=== PATIENT | male | born 1955 | race Caucasian/White ===

== ENCOUNTER 2016-05-12 09:08 | Emergency (ER) ==
--- NOTE | 2016-05-12 10:52 | PROVIDER DOCUMENTATION ---
HPI-Musculoskeletal Pain/Inj - GENERAL Chief Complaint: Extremity Pain Stated Complaint: HIP/GROIN PAIN Time Seen by Provider: 05/12/16 10:35 Source: patient - HX OF PRESENT ILLNESS-MUSKULOSKELTAL Nature of Presenting Problem: This pt presents to ED with c/o right hip pain from arthritis that has worsened over the past week. He is being followed by Dr. Morel for his arthritis in which he was given a Medrol dose pack and Hazen 7.5 earlier this week after evaluation. He reports that "it hasn't touched it" when discussing his pain. He states he hasn't been able to sleep. He is able to walk but "not very far." He presents today just requesting something to "get him by." He will f/u c Dr. Morel on Saturday. Quality of Pain: reports: aching Severity in ED: moderate Onset/Duration: other (see hpi) Timing: still present Modifying Factors: improves with: movement Any recent injury?: No Similar Symptoms Previously?: Yes Recently seen or treated by another doctor?: Yes Review of Systems - Adult - REVIEW OF SYSTEMS - ADULT Constitutional: reports: no symptoms reported. denies: chills, fever Eyes: reports: no symptoms reported. denies: discharge, dry eyes Ears, Nose, Mouth & Throat: reports: no symptoms reported. denies: ear discharge, ear pain Cardiovascular: reports: no symptoms reported. denies: chest pain, edema Respiratory: reports: no symptoms reported. denies: chronic cough, cough Gastrointestinal: reports: no symptoms reported. denies: abdominal pain, hematemesis Genitourinary: reports: no symptoms reported. denies: dysuria, discharge Musculoskeletal: reports: see HPI, joint pain. denies: bone pain, back pain, muscle aches Integumentary: reports: no symptoms reported. denies: hives, hair loss Neurological: reports: no symptoms reported. denies: ataxia, dizziness/vertigo Psychiatric: reports: no symptoms reported. denies: anxiety, anti-depressant use Endocrine: reports: no symptoms reported Hematologic/Lymphatic: reports: no symptoms reported Allergic/Immunologic: reports: no symptoms reported All Other Systems: Reviewed and Negative Past History - Adult - PAST MEDICAL HISTORY-ADULT Review of Records: reports: Old Records Reviewed, Nursing Assessment Review, Medications Reviewed, Social history reviewed & non-contributory. Major Childhood Illnesses: reports: denies history Cardiovascular: reports: denies history Respiratory: reports: denies history Gastrointestinal: reports: denies history Obstetrical/Gynecological: reports: denies history Genitourinary: reports: denies history Musculoskeletal: reports: arthritis Neurological: reports: denies history Endocrine/Immune: reports: denies history Other Conditions: reports: denies history - PRIOR SURGERIES/PROCEDURES Surgical/Procedure History: reports: joint replacement - FAMILY HISTORY Family History: reviewed, not pertinent Physical Exam-Injury Related - Physical Exam-Injury Related Initial Vital Signs Reviewed: Yes General Appearance: appears well, alert, no apparent distress Eyes: PERRL/EOMI, pink conjunctivae Head, Ears, Nose, Mouth & Throat: normocephalic/atraumatic, moist mucous membranes, normal ENT inspection Neck: non-tender, full range of motion, supple, normal inspection Respiratory: chest non-tender, lungs clear, normal breath sounds Cardiovascular: normal peripheral pulses, regular rate, rhythm, no edema, no gallop, no JVD, no murmur Abdominal Exam: normal bowel sounds, non tender, soft Back Exam: normal inspection, no CVA tenderness, no vertebral tenderness Extremity: normal inspection, pelvis stable, tenderness (R hip) Integumentary: normal color, warm/dry, blanching Neurologic: grossly normal, no motor/sensory deficits. negative: facial droop, focal weakness, motor weakness, sensory deficit Progress - PLAN OF CARE/RESULTS Progress/Plan/Lab Results: Orders Category Date Time Status XRAY PELVIS W/HIP 2-3VW RT [RAD] Stat Exams 05/12/16 10:04 Taken Dexamethasone [Decadron] Med 05/12/16 11:01 Discontinued 10 mg IM NOW ONE Hydromorphone [Dilaudid] Med 05/12/16 11:01 Discontinued 1 mg IM NOW ONE Promethazine [Phenergan] Med 05/12/16 11:01 Discontinued 25 mg IM NOW ONE Vital Signs Temp Pulse Resp BP Pulse Ox 05/12/16 09:18 97.5 F L 79 18 177/74 98 meperidine HCl * [From Mepergan] Adverse Reaction (Severe, Verified 11/18/15 20: 31) agitation promethazine HCl * [From Mepergan] Adverse Reaction (Severe, Verified 11/18/15 20:31) agitation acetaminophen [From Percocet] Adverse Reaction (Verified 06/21/15 10:29) Unknown oxycodone HCl * [From Percocet] Adverse Reaction (Verified 06/21/15 10:29) Unknown Amlodipine Besylate [Norvasc] 2.5 mg PO DAILY #30 tablet 06/24/15 Bisoprolol [Zebeta] 10 mg PO DAILY #30 tablet 06/24/15 Furosemide [Lasix] 60 mg PO DAILY #30 tablet 06/24/15 LISINOpril [Prinivil] 40 mg PO DAILY #30 tablet 06/24/15 Potassium Chloride E.r. [Micro-K] 16 meq PO DAILY #30 capsule 06/24/15 Spironolactone [Aldactone] 12.5 mg PO DAILY #30 tablet 06/24/15 Tramadol [Ultram] 100 mg PO Q8H #20 tablet 06/24/15 Will have pt f/u c ortho on Saturday. He and his are in agreement. - XRAY 1 XRAY: Right XRAY Study: Pelvis, Hip XRAY Interpretation: nad Departure - Departure Time of Disposition Order: 11:04 DIAGNOSIS: Hip arthritis Disposition: HOME 01 Certified Medical Emergency: Urgent Condition: Good Additional Instructions: Continue taking your current medications. Follow up with Dr. Morel this week. Return to the ER for any new or worsening symptoms. ED Follow Up Instructions: You have been treated by a care provider in the Emergency Department. These instructions are being provided to you so you can have an understanding of how to care for yourself upon discharge. Upon discharge from the Emergency Department, you are responsible for making arrangements for follow-up care by a physician of your choice. Take all prescribed medications as directed. Return to the Emergency Department immediately for any new or worsening symptoms. You may call the Physician Referral phone number at [phone] to obtain a list of Physicians who are taking new patients. Referrals: Hal Ortiz MD [Primary Care Provider] - Abhi Morel MD [STAFF PHYSICIAN] - Attestation - Physician/ KIRA Attestation Patient care was provided by Advanced Practice Provider:: Yes Advanced Practice Provider:: Jorje Jones Advanced Practice Provider documentation review:: The Mid-level provider documentation, treatment plan and medical decision making was reviewed by the physician who agrees with all treatment and medical decision making by the MLP.
[2016-05-12] MEDS ORDERED: PHENERGAN IM ONE (11:01)
[2016-05-12] MEDS ORDERED: DILAUDID IM ONE (11:01)
[2016-05-12] MEDS ORDERED: DECADRON IM ONE (11:01)
[2016-05-12 11:47] VITALS: BP 165/70
--- NOTE | 2016-05-12 15:26 | Diag Imaging Result Document ---
PROCEDURE NAME: XRAY PELVIS W/HIP 2-3VW RT - 05/12/2016 RIGHT HIP AND PELVIS, 3 VIEWS: COMPARISON: No comparison exam. FINDINGS: There is a right total hip prosthesis which appears to be in satisfactory alignment. There is no fracture identified. There are no destructive changes identified. There is some bony hypertrophy at the medial margin of the proximal right femur which is likely chronic. There are degenerative changes noted at the visualized lower lumbar spine. IMPRESSION: Right total hip prosthesis in satisfactory alignment. No visible acute process.
== END 2016-05-12 11:46 | disposition home or self-care (01) ==
LOC: ED 09:08
DX: M16.11 Unilateral primary osteoarthritis, right hip (principal); M25.551 Pain in right hip
CPT/HCPCS: 96372; J1170; J2550

== ENCOUNTER 2016-07-27 16:22 | Inpatient (IN) ==
--- NOTE | 2016-07-27 18:46 | PROVIDER DOCUMENTATION ---
HPI-General Adult - General Chief Complaint: Weakness Stated Complaint: WEAKNESS ABD PAIN/KIDNEY & BONE CANCER Time Seen by Provider: 07/27/16 18:38 Source: patient, family Allergies/Adverse Reactions: Patient Allergies Allergy/AdvReac Type Severity Reaction Status Date / Time meperidine HCl * AdvReac Severe agitation Verified 11/18/15 20:31 [From Mepergan] promethazine HCl * AdvReac Severe agitation Verified 11/18/15 20:31 [From Mepergan] acetaminophen [From Percocet] AdvReac Unknown Verified 06/21/15 10:29 oxycodone HCl * AdvReac Unknown Verified 06/21/15 10:29 [From Percocet] Home Medications: Home Medication List Medication Instructions Recorded Confirmed Last Taken Type Amlodipine Besylate [Norvasc] 2.5 mg PO DAILY #30 tablet 06/24/15 Unknown Rx Bisoprolol [Zebeta] 10 mg PO DAILY #30 tablet 06/24/15 Unknown Rx Furosemide [Lasix] 60 mg PO DAILY #30 tablet 06/24/15 Unknown Rx LISINOpril [Prinivil] 40 mg PO DAILY #30 tablet 06/24/15 Unknown Rx Potassium Chloride E.r. [Micro-K] 16 meq PO DAILY #30 capsule 06/24/15 Unknown Rx Spironolactone [Aldactone] 12.5 mg PO DAILY #30 tablet 06/24/15 Unknown Rx Tramadol [Ultram] 100 mg PO Q8H #20 tablet 06/24/15 Unknown Rx Ondansetron HCl [Zofran] 1 - 2 tab PO Q6H PRN PRN #15 tablet 07/15/16 Unknown Rx - History of Present Illness -Gen Adult Nature of Presenting Problems: Pt is a 61 y/o M a chief complaint of weakness, abd pain, nausea and vomiting x 3-5 days. Pt recently returned from a trip where his family thinks he was exposed to someone with a gastroenteritis. Pt is currently under treatment by Dr. Ortega (Oncology) for renal cell carcinoma c mets to multiple dio sites. Pt 's family states he has stopped eating yesterday. They contacted Dr. Ortega who advised them to come to the ER for evaluation. Review of Systems - Adult - REVIEW OF SYSTEMS - ADULT Constitutional: reports: see HPImeng. denies: chills Eyes: reports: no symptoms reported. denies: blurred vision, double vision Ears, Nose, Mouth & Throat: reports: no symptoms reported. denies: ear pain, nose pain Cardiovascular: reports: no symptoms reported. denies: chest pain, orthopnea Respiratory: reports: no symptoms reported. denies: cough, shortness of breath Gastrointestinal: reports: see HPI, abdominal pain, nausea, vomiting Genitourinary: reports: no symptoms reported. denies: dysuria Musculoskeletal: reports: no symptoms reported. denies: bone pain, joint pain, joint swelling Integumentary: reports: no symptoms reported. denies: itching, rash Neurological: reports: no symptoms reported. denies: numbness, paresthesia Psychiatric: reports: no symptoms reported. denies: anxiety, emotional problems Endocrine: reports: no symptoms reported. denies: cold intolerance, heat intolerance Hematologic/Lymphatic: reports: no symptoms reported. denies: blood clots, low blood count Allergic/Immunologic: reports: no symptoms reported. denies: allergic reactions , food allergy All Other Systems: Reviewed and Negative Past History - Adult - PAST MEDICAL HISTORY-ADULT Review of Records: reports: Old Records Reviewed, Nursing Assessment Review, Medications Reviewed, Social history reviewed & non-contributory. Major Childhood Illnesses: reports: denies history Cardiovascular: reports: HTN Respiratory: reports: denies history Gastrointestinal: reports: denies history Obstetrical/Gynecological: reports: denies history Genitourinary: reports: cancer (renal cell carcinoma c mets) Musculoskeletal: reports: arthritis Neurological: reports: denies history Endocrine/Immune: reports: denies history Other Conditions: reports: denies history - PRIOR SURGERIES/PROCEDURES Surgical/Procedure History: reports: joint replacement - IMMUNIZATION STATUS Childhood Immunizations: See Nurse Assessment Flu Vaccine: See Nurse Assessment - FAMILY HISTORY Family History: reviewed, not pertinent - SOCIAL HISTORY Smoking: denies Substance Use: none/never Alcohol Use Frequency: never Living Situation: family Physical Exam-General - PHYSICAL EXAM-ADULT Initial Vital Signs Reviewed: Yes - CONSTITUTIONAL General Appearance: alert, no apparent distress, lethargic - EYES Eyes: PERRL/EOMI, pink conjunctivae - HEAD, EARS, NOSE, MOUTH & THROAT HENMT: normocephalic/atraumatic, moist mucous membranes, normal ENT inspection - NECK Neck: normal inspection - RESPIRATORY Respiratory: chest non-tender, lungs clear, normal breath sounds - CARDIOVASCULAR Cardiovascular: normal peripheral pulses, regular rate, rhythm - GASTROINTESTINAL (ABDOMEN) Abdominal Exam: distended, tenderness - LYMPHATIC Lymphatic: no adenopathy - MUSCULOSKELETAL Back Exam: normal inspection, no CVA tenderness, no vertebral tenderness Extremity: normal range of motion, non-tender, normal inspection - SKIN Integumentary: normal color, normal turgor, warm/dry - NEUROLOGIC Neurologic: grossly normal, no motor/sensory deficits - PSYCHIATRIC Psych/Mental Status: normal mood/affect, normal thought content, normal thought process, oriented x 3 Progress - PLAN OF CARE/RESULTS Progress/Plan/Lab Results: Vital Signs - 8 hr 07/27/16 16:39 Temperature 98.2 F Pulse Rate 115 H Respiratory Rate 22 Blood Pressure 144/77 O2 Sat by Pulse Oximetry 100 Orders Category Date Time Status Saline Loc NOW Care 07/27/16 18:44 Active CHEST-2 VIEWS [RAD] Stat Exams 07/27/16 18:44 Ordered BLOOD CULTURE [BLDCUL] Stat Lab 07/27/16 18:44 Uncollected CBC WITH ELECTRONIC DIFF [HEME] Stat Lab 07/27/16 18:44 Uncollected COMPREHENSIVE METABOLIC PANEL [CHEM] Stat Lab 07/27/16 18:44 Uncollected D-DIMER [CHEM] Stat Lab 07/27/16 18:44 Uncollected MAGNESIUM [CHEM] Stat Lab 07/27/16 18:44 Uncollected PRO B-NATRIURETIC PEPTIDE Stat Lab 07/27/16 18:44 Uncollected PROTIME WITH INR [COAG] Stat Lab 07/27/16 18:44 Uncollected PTT [COAG] Stat Lab 07/27/16 18:44 Uncollected TROPONIN T Stat Lab 07/27/16 18:44 Uncollected UA Reflex [URINALYSIS W/POSS RFLX CULT] [URINALYSIS] Lab 07/27/16 18:45 Uncollected Stat EKG [EKG] Stat Ther 07/27/16 16:39 Ordered EKG [EKG] Stat Ther 07/27/16 18:44 Ordered Result Diagrams: 07/27/16 19:07 07/27/16 19:07 - CONSULTS/PCP/HOSPITALIST Notification #1 *Consult/PCP/Hospitalist*: Dr. Ortega ([facility] onc) Time Discussed: 22:16 Reason/Comments: admit to pcp. #2 Consult: Dr. Krishna (hospitalist) Time Discussed: 22:34 Reason/Comments: Will admit pt and see in ER. Departure - Departure Time of Disposition Decision: 22:34 DIAGNOSIS: Elevated liver enzymes Nausea & vomiting Qualifiers: Vomiting type: unspecified Vomiting Intractability: non-intractable Qualified Code(s): R11.2 - Nausea with vomiting, unspecified Abdominal pain Qualifiers: Abdominal location: unspecified location Qualified Code(s): R10.9 - Unspecified abdominal pain Disposition: ADMITTED INPATIENT 09 Certified Medical Emergency: Emergent Condition: Stable Referrals and Follow-Ups: Hal Ortiz MD [Primary Care Provider] - - Critical Care Note This patient required my direct & personal management of CC.: No Attestation - Physician/ KIRA Attestation Patient care was provided by Advanced Practice Provider:: Yes Advanced Practice Provider:: Rober Drew Advanced Practice Provider documentation review:: The Mid-level provider documentation, treatment plan and medical decision making was reviewed by the physician who agrees with all treatment and medical decision making by the MLP.
[2016-07-27] MEDS ORDERED: NS 1,000 ML IV ONE ×2 (19:08→23:27)
[2016-07-27 19:20] LABS: MANUAL DIFF NEEDED? NO
[2016-07-27 19:31] LABS: BASO% 0.1 % (0.0-0.8); EOS# 0.21 X1000 (0.0-0.7); HEMATOCRIT 48.4 % (42.0-52.0); HEMOGLOBIN 17.4 g/dL (14.0-18.0); IMM GRAN# 0.04 X1000 (0.0-0.04); IMM GRAN% 0.6 % (0.0-0.5); LYMPH# 0.91 X1000 (1.2-3.4); LYMPH% 12.9 % (20.5-51.1); MCH 29.3 PG (27-31); MCV 81.6 FL (81-99); MONO# 0.55 X1000 (0.11-0.59); MONO% 7.8 % (1.7-9.3); MPV 9.2 FL (7.4-10.4); NEUT% 75.6 % (42.2-75.2); PLT 92 X1000 (130-400); RBC 5.93 XMIL (4.7-6.1)
[2016-07-27 19:34] LABS: INR 1.02; PROTIME 10.7 Seconds (9.2-11.7); PTT 28.7 Seconds (22.0-36.0)
[2016-07-27 19:46] LABS: AGAP 15; ALBUMIN 3.5 g/dL (3.5-5.0); ALKALINE PHOSPHATASE 102 U/L (32-122); BUN 12 mg/dL (8-22); CALCIUM 8.1 mg/dL (8.8-10.2); CHLORIDE 90 mmol/L (98-107); COSMO 257; GOT 135 U/L (10-34); GPT 565 U/L (10-44); POTASSIUM 3.9 mmol/L (3.5-5.1); SODIUM 128 mmol/L (136-145); TCO2 23 mmol/L (25-35); TOTAL BILIRUBIN 0.89 mg/dL (0.20-1.00); TOTAL PROTEIN 6.6 g/dL (6.3-8.3)
--- NOTE | 2016-07-27 19:57 | Diag Imaging Result Doc PS360 ---
CHEST-2 VIEWS - 07/27/2016 INDICATION: sob TECHNIQUE: COMPARISON: 06/22/2015 FINDINGS: The lungs are normally expanded and clear. Heart size and mediastinal contours are normal. No pneumothorax or pleural effusion. IMPRESSION: Negative exam. Electronically signed by Nimesh Monet 07/27/2016 7:55 PM
--- NOTE | 2016-07-27 21:47 | Diag Imaging Result Doc PS360 ---
HEAD W/O CONTRAST - 07/27/2016 INDICATION: weakness, CA c mets TECHNIQUE: A CT dose reduction protocol was used. COMPARISON: None FINDINGS: The ventricles and sulci are normal in size and contour. No intracranial mass or hemorrhage. The skull is intact. The sinuses mastoids and middle ears are clear. IMPRESSION: Negative exam. Electronically signed by Nimesh Monet 07/27/2016 9:45 PM
--- NOTE | 2016-07-27 21:57 | Diag Imaging Result Doc PS360 ---
ABD/PELVIS/PULM ARTERIES - 07/27/2016 INDICATION: weakness, ca c mets TECHNIQUE: A CT dose reduction protocol was used. COMPARISON: Skeletal survey 05/22/2016 FINDINGS: CHEST: There is a large lytic mass of the glenoid process of the left scapula. This was present on the previous skeletal survey but was more difficult to see at that time. There is a soft tissue mass involved measuring about 5-6 cm. There is probably also a tiny erosive nodule at the medial border of the right scapula. Other bones are intact. Axial CT images were obtained after administering intravenous contrast. Coronal MIP images were generated. There is no pulmonary embolism. Heart and great vessels are normal. There are calcified granulomas in the right lower lobe. The lungs are otherwise clear. Abdomen pelvis: There is a suspicious, heterogeneously enhancing mass of the lower pole of the right kidney. This is at the anterior surface. This measures 4.7 x 5.5 cm. There are bilateral suspicious adrenal masses measuring about 2 cm. No bowel obstruction or inflammation. No significant adenopathy. There is a right hip prosthesis. There is a superficial soft tissue nodule posterior to the sacrum at the left side. This is heterogeneously calcified. This measures 2.5 cm. Centered at the right pedicle and posterior elements of L3, there is a rather large erosive mass. This probably nearly completely fills the central canal and measures 2.2 x 4.6 cm. IMPRESSION: 1. Right renal mass with bilateral adrenal masses. 2. Metastases in the scapula bilaterally and L3 vertebral body. Small soft tissue nodule posterior to the sacrum. Electronically signed by Nimesh Monet 07/27/2016 9:54 PM
[2016-07-27] MEDS ORDERED: ZOFRAN IV ONE (22:15)
[2016-07-27] MEDS ORDERED: ZOSYN 3.375 GM/NS 3.375 GM/50 ML IVPB IV ONE (22:15)
[2016-07-27] MEDS ORDERED: MORPHINE IM ONE (22:15)
[2016-07-27 23:36] LABS: URINE CULTURE NEEDED? NO; URINE MICRO REVIEW NEEDED? NO; URINE SOURCE CLEAN CATCH
[2016-07-27 23:43] LABS: BILIRUBIN URINE NEGATIVE (NEGATIVE); BLOOD URINE NEGATIVE (NEGATIVE); COLOR YELLOW; GLUCOSE URINE NEGATIVE (NEGATIVE); LEUKOCYTES URINE NEGATIVE (NEGATIVE); NITRITE URINE NEGATIVE (NEGATIVE); PH URINE 6.5; PROTEIN URINE 30 mg/dL (NEGATIVE); TURBIDITY URINE CLEAR (CLEAR); UROBILINOGEN URINE 6 mg/dL (NORMAL)
[2016-07-27 23:44] LABS: UR EPITHELIAL CELLS <10 /HPF (<10); URINE BACTERIA NEGATIVE /HPF; URINE RBC <10 /HPF (<10); URINE WBC <10 /HPF (<10)
[2016-07-28 00:05] LABS: SP GRAVITY URINE > 1.050
[2016-07-28] MEDS ORDERED: NS 1,000 ML IV SCH (00:17)
[2016-07-28] MEDS ORDERED: APRESOLINE IV PRN (00:17)
[2016-07-28] MEDS: PROTONIX IV SCH ×2 (01:21→23:45)
[2016-07-28] MEDS: ZOFRAN IV PRN ×2 (05:41→10:13)
--- NOTE | 2016-07-28 05:59 | HISTORY AND PHYSICAL ---
PRIMARY CARE PROVIDER: Hal Ortiz MD CHIEF COMPLAINT: Abdominal pain with nausea and vomiting. HISTORY OF PRESENT ILLNESS: This is a 61-year-old male, who presented with weakness, abdominal pain, nausea and vomiting for 3-5 days. The patient recently returned from a trip apparently where the family thinks he may have been exposed to someone with a viral illness. At any rate, he has renal cell carcinoma with multiple mets to bony sites. He sees Dr. Ortega who was treating him with a targeted oral chemotherapy. He had to have, from what I understand, emergent spine radiation 3-4 weeks ago related to a tumor pressing on his spinal column. He became unable to urinate. The chemotherapy has been stopped at this time and will be restarted some time in the future per Dr. Ortega. The , who is at bedside, states over the past 2 weeks, he is barely been eating at all. He has lost roughly 18 pounds in the last week. The patient, I believe, has other past medical history of congestive heart failure, hypertension, history of DVTs and osteoarthritis. There was a time where he was noncompliant with his antihypertensive medications, but per the , he is taking these now. Laboratory data was obtained in the emergency room, which showed an elevated ALT and AST. The patient had normal liver function tests on 07/15/2016. At this time, his AST is 135 and his ALT is 565. The ER sent an acute hepatitis panel off. The patient also appears to be volume depleted related to his nausea and vomiting. He was noted as having a sodium of 128. He will be admitted to the medical floor for further evaluation and treatment. PAST MEDICAL HISTORY: See HPI. PREVIOUS SURGICAL HISTORY: 1. Left knee surgery. 2. Left knee arthroscopic x2 3. Left TKR, April 2009. 4. Right THR 2010. ALLERGIES: Demerol causing agitation, Phenergan causing agitation, and Percocet causing an unknown reaction. He was also noted as having an MARIAN inhibitor cough in the past. FAMILY HISTORY: Notable for myocardial infarction in his father at age 59, hypertension in his brother. A brother with leukemia. SOCIAL HISTORY: Lives in [facility] with his . Has 2 children. On disability. Worked at [employer] for 25 years. In the past was a social cigarette user but never chronically used tobacco. Denies alcohol or illicit drug use or abuse. HOME MEDICATIONS: A list of home medications was not reconciled. An order was placed for nursing to reconcile home medications. These will be restarted when appropriate. REVIEW OF SYSTEMS: Fourteen point review of systems conducted, and is notable for nausea, vomiting, abdominal pain, global weakness and fatigue. All other systems were reviewed and found to be negative. PHYSICAL EXAMINATION: VITAL SIGNS: Temperature 98.2 degrees, pulse 122, respirations 20, blood pressure 142/100, oxygen saturation 100% on room air. GENERAL: Very fatigued looking 61-year-old gentleman. He is morbidly obese lying in the ER stretcher. is at bedside. He is alert and oriented x3. Answers all questions appropriately. HEENT: Head is atraumatic, normocephalic. Pupils are equal, round, reactive to light. Extraocular eye movement are intact. Sclerae is anicteric. Conjunctivae is pink. Oral mucosa is dry. NECK: Supple. Trachea is midline. No JVD noted. CARDIOVASCULAR: S1-S2 appreciated. Regular rhythm. No murmurs, gallops, rubs. LUNGS: Clear to auscultation bilaterally. No rhonchi, wheezes or rales. Symmetrical rise and fall with respirations. ABDOMEN: Soft but distended. Bowel sounds decreased all 4 quadrants. Diffusely tender. No rigidity or rebound tenderness or guarding noted. EXTREMITIES: Trace lower extremity edema, nonpitting. Discoloration from chronic venous stasis on bilateral shins. Multiple small scratches and abrasions on the patient's shins noted. Pedal pulses 2+. NEUROLOGICAL: Mildly lethargic but alert and oriented x3. Cranial nerves 2-12 appear to be grossly intact. No focal deficits. DIAGNOSTIC DATA: CT scan of the abdomen, pelvis and pulmonary arteries showed a right renal mass with bilateral adrenal masses. Mets were noted to the bilateral scapulae, L3 vertebrae and a soft tissue nodule posterior to the sacrum. A CT of the head was completed. It was a negative examination. LABORATORY DATA: CBC within normal limits. Coagulations within normal limits. Sodium 128, potassium 3.9, chloride 90, carbon dioxide 23, BUN 12, creatinine 0.6, glucose 101, AST 135, ALT 565, plasma lactate 3, urine unremarkable. ASSESSMENT: 1. Abdominal pain with nausea and vomiting, unknown etiology. The patient's states that she believes he was around someone with a viral illness. We will give the patient Zofran as needed for nausea. The patient did receive 1 time dose of Zosyn in the emergency room. No clear infectious process can be determined. We will not continue Zosyn at this time. 2. Transaminitis. Patient has an elevation of his ALT and AST, which he did not have on previous labs. On 07/15/2016, a CT was done of his abdomen which did not note any changes to the liver. We will order a right upper quadrant ultrasound. Dr. Ortega has requested that a surgical consult be placed related to his elevated liver enzymes and abdominal pain to evaluate patient and reassess the CT scan. 3. Fluid volume depletion. This is secondary to nausea and vomiting. Fluid bolus was given in the emergency room. We will continue gentle fluid hydration. 4. Hyponatremia. This will likely resolve with fluids noted above. 5. Hypertension. The patient's home medication list has not been updated at this time. We will give hydralazine 10 mg IV q.6 p.r.n. for systolic blood pressure greater than 160 until his home medications can be restarted. 6. Right renal cell carcinoma with multiple metastatic sites. Dr. Ortega has been consulted to evaluate the patient. He follows him outpatient. We will give morphine 2-4 mg as needed for pain, and restart home medications when possible. Further recommendations per patient clinical course. Dictated by HERNAN Mahajan for Porfirio Krishna MD cc: HERNAN Mahajan MD Stephen W. Harbin, MD Traci C. McCormick, MD Naveen T. Lobo, MD
[2016-07-28 07:11] LABS: AGAP 13; ALBUMIN 2.9 g/dL (3.5-5.0); ALKALINE PHOSPHATASE 83 U/L (32-122); BUN 12 mg/dL (8-22); CHLORIDE 97 mmol/L (98-107); COSMO 260; GOT 99 U/L (10-34); GPT 440 U/L (10-44); POTASSIUM 3.8 mmol/L (3.5-5.1); SODIUM 129 mmol/L (136-145); TCO2 19 mmol/L (25-35); TOTAL BILIRUBIN 0.78 mg/dL (0.20-1.00); TOTAL PROTEIN 5.6 g/dL (6.3-8.3)
[2016-07-28] MEDS: MORPHINE IV PRN ×2 (07:40→10:07)
[2016-07-28 09:21] LABS: CALCIUM 6.6 mg/dL (8.8-10.2)
--- NOTE | 2016-07-28 10:49 | Diag Imaging Result Doc PS360 ---
US ABDOMEN-COMPLETE - 07/28/2016 INDICATION: elevated LFT COMPARISON: CT from 07/27/2016 FINDINGS: The exam is technically challenging due to patient condition and body size. The right renal mass is obscured. The liver is somewhat fatty. The gallbladder is clear. The pancreas, left kidney, aorta, IVC, and main portal vein are obscured. The spleen is normal. IMPRESSION: No additional findings. Electronically signed by Nimesh Monet 07/28/2016 10:47 AM
[2016-07-28] MEDS ORDERED: MORPHINE IR PO PRN (11:05)
[2016-07-28] MEDS ORDERED: MORPHINE IV PRN (11:08)
[2016-07-28] MEDS ORDERED: MS CONTIN PO SCH (11:15)
[2016-07-28] MEDS: PRINIVIL PO SCH (11:54)
[2016-07-28] MEDS: MS CONTIN PO SCH ×2 (11:54→20:40)
--- NOTE | 2016-07-28 11:59 | PROGRESS NOTE ---
DATE: 07/28/2016 SUBJECTIVE: Patient has been off his scheduled dose of the Ms Contin and is having severe pain, especially in his legs. According to his , he has been using some Voltaren gel there on his legs quite a bit. He had nausea and vomiting, but that has resolved and he says he is feeling better in his abdomen. He had an abdominal ultrasound, just now. OBJECTIVE: Vital Signs: Afebrile. Pulse of 114, blood pressure 143/72, O2 saturation on room air 100%. Cardiovascular: Tachycardia, regular rhythm. Lungs: Clear to auscultation. Abdomen: Protuberant, soft, no pinpoint tenderness. Extremities: No calf tenderness, cords or edema. Neurologic: Cranial nerves are intact. Nonfocal. LABORATORY DATA: White count 7.06, hemoglobin 17.4, hematocrit 48.4, platelets 92,000, neutrophils 75, lymphocytes 13. PT 10.7, INR 1.02. PTT 28.7, D-dimer 0.23. Sodium 129, potassium 3.8, chloride 97, CO2 19, BUN 12, creatinine 0.6, glucose 115, calcium 6.6, albumin 2.9. Total bilirubin 0.78, AST 99, ALT 440, decreased with dilution. Ammonia 13. Troponin 0.01, proBNP 32. Total protein is 5.6. Urinalysis is negative. Acetaminophen less than 1.2. CT head. Negative. CT abdomen and pelvis continues to show right renal mass with bilateral adrenal masses, metastasis to bilateral scapulae and to L3 vertebral. Soft tissue nodule posterior to the sacrum. Abdominal ultrasound just done shows no other findings except some fatty liver. ASSESSMENT: 1. Nausea and vomiting, improved. 2. Abdominal pain, improved. 3. Elevated LFTs with fatty liver, possibly related to his vomiting, improving slightly. 4. Mild dehydration with weight loss of 18 pounds. 5. Hyponatremia thought related to diuretics of Aldactone and Lasix which we are holding at this point. 6. Hypertension. 7. Right renal cell carcinoma with history of multiple metastasis to the scapulae bilaterally and to the vertebrae with history of radiation treatment to the spine done fairly recently in the last 2-4 weeks and also patient having been on oral chemotherapy per Dr. Ortega. 8. Remote history of deep vein thrombosis. PLAN: Dr. Dominique is going to see the patient in consultation. At this time the patient is begging for his pain medications. We are going to switch him over to clear liquid diet and give him his home medication regimen as he did well on that. We will continue morphine IV, if required, sparingly. Otherwise Dr. Ortega was also consulted on the patient. We will follow his transaminases closely, continue to treat nausea with Zofran. Continue IVF, resume his home antihypertensive. We will hold off on any Voltaren as rarely this can elevated liver function tests. Hepatitis profile is pending. We will prophylax DVT with Lovenox due to his history of prior DVTs. cc: Hal Ortiz MD
[2016-07-28] MEDS: ZEBETA PO SCH (14:52)
[2016-07-28] MEDS: NORVASC PO SCH (14:53)
--- NOTE | 2016-07-28 19:11 | CONSULTATION ---
DATE OF CONSULTATION: 07/28/2016 CHIEF COMPLAINT: Abdominal pain, nausea, vomiting. HISTORY: This is a 61-year-old obese gentleman who was in [place] attending a family . He developed an illness there that was characterized by abdominal pain, nausea, vomiting and diarrhea. He lost about 18 pounds in a week. When he came back he was hypotensive and tachycardic. He was admitted yesterday. He has been rehydrated since yesterday, feels 100% better than yesterday, he is no longer having abdominal symptoms that he was having. PAST MEDICAL HISTORY: He has had knee replacement in the past. He has a history of renal cell carcinoma and is followed by Dr. Ortega for this. MEDICATIONS: Listed. ALLERGIES: Is intolerant of Phenergan and Percocet. SOCIAL HISTORY: He is . Lives in [facility], a former employee at [employer]. REVIEW OF SYSTEMS: As noted above. EXAM: Vital signs: Afebrile. Heart rate is 104, blood pressure 119/57. Neck: No cervical adenopathy. Lungs: Bilateral breath sounds. Abdomen: Soft and nontender today, bowel sounds are present. ASSESSMENT: He had a viral illness which probably relates to the elevated transaminases. He is now symptom-free and much improved with rehydration. Will check his labs again in the morning but certainly he has no evidence of peritoneal signs or indication for operative intervention. Thanks for allowing me to see him. cc: MD Hal Perez MD
[2016-07-28] MEDS: SODIUM CHLORIDE 0.9% INJ SCH (23:45)
[2016-07-29 05:59] LABS: MANUAL DIFF NEEDED? NO
[2016-07-29 06:23] LABS: BASO% 0.3 % (0.0-0.8); EOS# 0.14 X1000 (0.0-0.7); EOS% 4.7 % (0.0-10.0); HEMATOCRIT 38.4 % (42.0-52.0); HEMOGLOBIN 13.6 g/dL (14.0-18.0); LYMPH# 0.31 X1000 (1.2-3.4); LYMPH% 10.5 % (20.5-51.1); MCH 29.6 PG (27-31); MCHC 35.4 g/dL (33-37); MCV 83.5 FL (81-99); MONO% 6.8 % (1.7-9.3); MPV 8.9 FL (7.4-10.4); NEUT% 77.7 % (42.2-75.2); PLT 55 X1000 (130-400)
[2016-07-29 06:32] LABS: AGAP 12; ALBUMIN 2.6 g/dL (3.5-5.0); ALKALINE PHOSPHATASE 80 U/L (32-122); AMYLASE 47 U/L (20-200); BUN 6 mg/dL (8-22); CHLORIDE 101 mmol/L (98-107); COSMO 263; GOT 125 U/L (10-34); GPT 406 U/L (10-44); LIPASE 80 U/L (13-60); POTASSIUM 3.9 mmol/L (3.5-5.1); SODIUM 133 mmol/L (136-145); TCO2 20 mmol/L (25-35); TOTAL PROTEIN 4.9 g/dL (6.3-8.3)
[2016-07-29 06:33] LABS: CALCIUM 6.9 mg/dL (8.8-10.2)
[2016-07-29] MEDS ORDERED: LOVENOX SUBQ SCH ×2 (09:00→10:50)
[2016-07-29] MEDS: PRINIVIL PO SCH (09:10)
[2016-07-29] MEDS: NORVASC PO SCH (09:10)
[2016-07-29] MEDS: MS CONTIN PO SCH ×2 (09:10→20:07)
[2016-07-29] MEDS: ZEBETA PO SCH (09:10)
--- NOTE | 2016-07-29 11:39 | PROGRESS NOTE ---
DATE: 07/29/2016 SUBJECTIVE: he patient says he is feeling better. He is not having any nausea. Still having some diarrhea. OBJECTIVE: Vital Signs: Blood pressure 110/67, respirations 19, pulse 90, temperature 97.8 degrees Fahrenheit. Oxygen saturation on room air is 100%. HEENT: Normocephalic. EOMs intact. PERRLA. Throat clear. Lungs: Clear to auscultation and percussion without rhonchi, rales, or wheezes. Heart: Regular rate rhythm without murmurs, gallops, or friction rubs. Abdomen: Soft. Active bowel sounds. No organomegaly or tenderness at this point. Laboratory: Shows the white count has dropped from 7060 to 2950. Hemoglobin has dropped slightly from 17,400 to 13,600. His left shift, platelet count dropped from 92,000 down to 55,000. Sodium is 133. Calcium was 6.6 yesterday and is 6.9 today. It was 8.1 on 07/27/2016. Albumin is low and may contribute to some of that. Serum transaminases are trending downward but are elevated. Alkaline phosphatase is normal. Total bilirubin is normal. AST is 125 and ALT is 406. ASSESSMENT: 1. Metastatic renal cell carcinoma. 2. Probable viral syndrome. 3. Elevated liver function tests. 4. Pancytopenia. PLAN: We will continue to observe. Hematology/oncology and surgery are both involved. cc: MD Hal Cornejo Jr, MD
--- NOTE | 2016-07-29 16:02 | CONSULTATION ---
DATE OF CONSULTATION: 07/29/2016 CHIEF COMPLAINT: Severe abdominal pain. HISTORY OF PRESENT ILLNESS: The patient is a 61-year-old male who is well known to me. He has a history of metastatic renal cell carcinoma. He initially presented with severe left scapular pain. A large mass was detected in that area. It was biopsied which confirmed metastatic renal cell carcinoma. He has received radiation to that area. Subsequently, he had severe right-sided hip pain and lower back pain. He was diagnosed to have metastasis in the right pelvic area as well as L3 with some intrathecal spread. He completed radiation to these areas about a week ago. On the day of admission, he developed severe abdominal cramping that was generalized. Despite being on pain medicines, this was uncontrollable. He had nausea and decreased p.o. and felt dehydrated. is a nurse. She apparently got a systolic blood pressure in the mid 80s. They came to the ER and patient was admitted for further management. In the ER labs revealed significantly elevated AST and ALT. CT of the chest, abdomen, and pelvis was performed. No PE was noted. Abdomen study was negative for bowel obstruction or perforation. No obvious colitis was noted. No explanation was noted for his elevated LFTs. He was admitted and this abdominal pain has spontaneously resolved. Dr. Dominique has evaluated the patient as well. He is tolerating liquids without any problems. He reports that he is very hungry and would like to eat a regular diet. Of note, his LFT elevation persists. He is having some pancytopenia at the current time. PAST MEDICAL/PAST SURGICAL HISTORY: Metastatic kidney cancer as described above , left knee surgery, right total hip replacement. ALLERGIES: Demerol, Phenergan, Percocet. SOCIAL HISTORY: Patient is and lives with his . He is an ex- smoker. He denies alcohol or substance abuse. FAMILY HISTORY: Noncontributory. CURRENT MEDICATIONS: Norvasc, Zebeta, Lovenox, lisinopril, morphine IR, morphine Contin, Zofran, Protonix. REVIEW OF SYSTEMS: He reports that his shoulder pain, back pain, and hip pain is significantly improved with radiation. He was not put back on his usual outpatient pain medicines on the night of admission and had a bad night. The next day Dr. Ortiz put him back on his usual medicines and he is doing well from that standpoint. Currently, he denies any nausea, abdominal pain. Bowel movements are regular. No blood in the stool. All other review of systems are negative. PHYSICAL EXAMINATION: General: The patient is in no acute distress. Vital Signs: Temperature 97.8 degrees, pulse 90, blood pressure 117/67. HEENT: Eyes: EOMI. PERRLA. Anicteric. Mucous membranes appear moist. Cardiac Exam: Regular rate and rhythm. Normal S1, S2. Chest: Clear to auscultation. Abdomen: Soft, nontender, without hepatosplenomegaly or masses. No guarding. Positive bowel sounds. Extremities: No cyanosis, clubbing, or clubbing. Mild edema is noted. Neurological: Alert and oriented x3. No focal motor deficits. Lymph nodes: Survey is negative. LABORATORY DATA: White count 2.95, hemoglobin 13.6, platelets 55,000, ANC 2.29. BUN 6, creatinine 0.6. AST 125, ALT 406, alkaline phosphatase 85, amylase 47, lipase 80. UA negative. Blood cultures negative. CT of the chest, abdomen, pelvis: Right renal mass with bilateral adrenal masses. Bony metastasis. ASSESSMENT AND PLAN: 1. Abdominal pain: Etiology is unclear. He had cramping abdominal pain suggesting either some enterocolitis or bowel obstruction. CT scan did not reveal any evidence of bowel obstruction. The pain has improved at this time. Advance diet. 2. Pancytopenia: He has a new onset of drop in blood counts. This along with high LFTs makes me suspect that this was a viral antritis possibly. Continue supportive care. Monitor CBC closely. It is possible this is related to recent radiation to the spine. 3. Elevated liver function tests: Etiology likely is a viral infection. LFTs are not worsening. Alkaline phosphatase and bilirubin are normal. Most likely some amount of hepatitis from a recent viral infection. Continue to monitor. 4. Metastatic kidney cancer: He is status post radiation to the left scapula, right hip, and lumbar spine. The pain is very well controlled at this time. He is supposed to be going on to [facility] next week. 5. Pain management: Continue MS Contin and MSIR at the current doses. Doing well from that standpoint. cc: MD Hal Georges MD MTDD
[2016-07-29] MEDS: PROTONIX IV SCH (20:08)
[2016-07-29] MEDS: SODIUM CHLORIDE 0.9% INJ SCH (20:08)
[2016-07-30 06:29] LABS: MANUAL DIFF NEEDED? NO
[2016-07-30 06:40] LABS: BASO% 0.4 % (0.0-0.8); EOS# 0.09 X1000 (0.0-0.7); EOS% 3.6 % (0.0-10.0); HEMATOCRIT 37.5 % (42.0-52.0); HEMOGLOBIN 13.2 g/dL (14.0-18.0); LYMPH# 0.48 X1000 (1.2-3.4); LYMPH% 19.2 % (20.5-51.1); MCH 29.4 PG (27-31); MCHC 35.2 g/dL (33-37); MCV 83.5 FL (81-99); MONO# 0.22 X1000 (0.11-0.59); MONO% 8.8 % (1.7-9.3); PLT 56 X1000 (130-400); RBC 4.49 XMIL (4.7-6.1)
[2016-07-30 07:04] LABS: AGAP 11; ALBUMIN 2.6 g/dL (3.5-5.0); ALKALINE PHOSPHATASE 88 U/L (32-122); BUN 4 mg/dL (8-22); CHLORIDE 100 mmol/L (98-107); COSMO 265; GOT 140 U/L (10-34); GPT 403 U/L (10-44); POTASSIUM 3.7 mmol/L (3.5-5.1); SODIUM 134 mmol/L (136-145); TCO2 23 mmol/L (25-35); TOTAL BILIRUBIN 0.56 mg/dL (0.20-1.00); TOTAL PROTEIN 5.1 g/dL (6.3-8.3)
[2016-07-30 07:20] VITALS: BP 140/67
[2016-07-30 07:25] LABS: CALCIUM 6.8 mg/dL (8.8-10.2)
--- NOTE | 2016-07-30 07:58 | EKG Report ---
Test Performed on : 07/27/2016 4:39:16 PM Test Reason : weakness Blood Pressure : / mmHG Vent. Rate : 113 BPM Atrial Rate : 113 BPM P-R Int : 150 ms QRS Dur : 092 ms QT Int : 328 ms P-R-T Axes : 000 022 034 degrees QTc Int : 449 ms Sinus tachycardia. with premature atrial complexes. Otherwise normal ECG When compared with ECG of 21-JUN-2015 09:17, premature atrial complexes. are now present Vent. rate has increased BY 39 BPM Questionable change in QRS axis T wave amplitude has increased in Anterior leads Unconfirmed Result
[2016-07-30] MEDS: ZEBETA PO SCH (09:00)
[2016-07-30] MEDS ORDERED: LOVENOX SUBQ SCH (09:00)
[2016-07-30] MEDS: PRINIVIL PO SCH (09:00)
[2016-07-30] MEDS: MS CONTIN PO SCH (09:00)
[2016-07-30] MEDS: NORVASC PO SCH (09:01)
--- NOTE | 2016-07-30 10:03 | PROGRESS NOTE ---
DATE: 07/30/2016 SUBJECTIVE: The patient is sitting up in the chair, and his is in his bed. He is prepared to go home. He wants to go home. He says he has had no nausea, vomiting, abdominal pain. OBJECTIVE: Vital Signs: Afebrile, pulse 87, respirations 18, blood pressure 140/67, and O2 saturation on room air is 100%. Cardiovascular: RRR without distinct murmur. Lungs: CTA. Abdomen: Protuberant, soft active, bowel sounds. NT/ND. No mass and no HSM appreciated. Extremities: No edema, calf tenderness, or cords. There are some excoriations of the lower extremities, noninfected appearing. Neurologic: Cranial nerves are intact. No focal deficits. DIAGNOSTIC DATA: White count 2.5, hemoglobin 13.2, platelets 56,000, neutrophils 68, lymphocytes 19. Sodium 134, potassium 3.7, chloride 100, CO2 of 23, BUN 4, creatinine 0.6, glucose 94, calcium 6.8 with an albumin that is low at 2.6. Total bilirubin 0.56, AST 140, ALT 403, alkaline phosphatase 88, total protein 5.1, albumin 2.6. ASSESSMENT: 1. Nausea and vomiting, resolved. 2. Abdominal pain, resolved. 3. Elevated liver function tests, slightly improved without clinical signs or symptoms. 4. Leukopenia with thrombocytopenia, stable. 5. Hyponatremia, improved. 6. Hypertension. 7. Renal cell carcinoma on the right with multiple metastasis to bilateral scapulae and vertebrae in the lumbar area, status post radiation treatment per Dr. Trammell. 8. History of deep vein thrombosis, remote. PLAN: The patient is desirous of discharge, and I spoke with Dr. Ortega by phone and he is agreeable to the patient being discharged. He already has a followup appointment with Dr. Ortega on August 02, and he will keep that and repeat counts at that time to include liver function tests and CBC and BMP. He will resume his home medications. We will not use any Voltaren gel. He knows to return here to the ER or to my office should he have any difficulties in the interim. cc: Hal Ortiz MD
[2016-07-31 12:54] LABS: HEPATITIS PROFILE ACUTE SEE COMMENTS
== END 2016-07-30 10:48 | disposition home or self-care (01) ==
LOC: ED 16:22 → 3N 07-28 00:43 → SUATTDRO 07-28 00:43 → 3N 07-28 00:56
PROVIDERS: ADMIT Family Medicine; ATTEND Family Medicine